=== PATIENT | female | born 1990 | race Caucasian/White ===

== ENCOUNTER 2018-01-02 22:18 | Emergency (ER) | payer OTHER ==
[~2018-01-02] VITALS: Ht 170.2 cm; Wt 75.3 kg
[~2018-01-02 22:18] MED LIST: CHROMAGEN,1 CAPSULE PO; Motrin PO; NOHOMEMEDS; PERCOCET; PRENATAL1 EACH; PRENATAL1 EACH PO; REGLAN10 MG PO
[2018-01-02] MEDS ORDERED: NORCO 5/3251 TABLET PO (23:32)
[2018-01-02] MEDS ORDERED: KEFLEX500 MG PO (23:32)
[2018-01-02] MEDS ORDERED: MOTRIN600 MG PO (23:32)
[2018-01-02 23:43] VITALS: BP 136/93
== END 2018-01-02 23:43 | disposition home or self-care (01) ==
LOC: RME 22:18 → EME 22:18 → RME 23:43
DX: K02.9 Dental caries, unspecified (principal)
CPT/HCPCS: 99281; 99283